=== PATIENT | male | born 1995 | race Two or more races ===

== ENCOUNTER 2019-08-18 16:06 | Emergency (ER) | payer SELFPAY ==
[~2019-08-18] VITALS: Ht 175.3 cm; Wt 99.8 kg
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
--- NOTE | 2019-08-18 16:23 | NUR ---
DEXTERP PA AT BEDSIDE FOR EVAL.
[2019-08-18] MEDS ORDERED: ACETAMINOPHEN 325 MG TABLET ONE (17:06)
[2019-08-18] MEDS: ACETAMINOPHEN 325 MG TABLET PO ONE (17:08)
[2019-08-18 17:24] VITALS: BP 135/98
--- NOTE | 2019-08-18 17:24 | NUR ---
Patient discharged to home in stable condition. Written and verbal after care instructions given. Patient verbalizes understanding of instruction.Crutches dispensed. Pt instructed on proper use of crutches. Patient able to demonstrate correct use of crutches.
== END 2019-08-18 17:25 | disposition home or self-care (01) ==
LOC: ER 16:12
DX: S80.01XA Contusion of right knee, initial encounter (principal); V49.49XA Driver injured in collision with other motor vehicles in traffic accident, initial encounter; Y93.89 Activity, other specified; Y92.413 State road as the place of occurrence of the external cause; Y99.8 Other external cause status
CPT/HCPCS: 73560-TC